=== PATIENT | female | born 1995 | race Hispanic/Latino ===

== ENCOUNTER 2021-02-27 22:14 | Emergency (ER) | payer SELFPAY ==
--- NOTE | ~2021-02-27 | CT_ITS ---
EXAMINATION: CT abdomen pelvis w con DATE: 02/28/2021 02:22 INDICATION: Abdominal pain, nausea, vomiting and fever TECHNIQUE: Computed tomography (CT) of the abdomen and pelvis was performed with 100 mL Omnipaque-350 intravenous contrast. Automated exposure control and iterative reconstruction technique were employe d. The dose-length product was 383.12 mGy-cm. COMPARISON: None FINDINGS: Lung bases are clear. Heart size is normal. No pericardial or pleural effusion. Cholecystectomy clips the gallbladder fossa. Liver, spleen, pancreas, bilateral adrenal glands are normal. The right kidne y is swollen with geographic regions of decreased parenchymal enhancement and with thickened enhancin g urothelium at the renal pelvis consistent with pyelonephritis. Small region of cortical scarring wi th mild surrounding decreased parenchymal enhancement at the left kidney likely sequela of prior infe ction. Diffuse mild bladder wall thickening consistent with cystitis. Uterus and bilateral adnexa are unremarkable. Bowels including the appendix are normal. Small amount of likely reactive there is phy siologic free fluid in the pelvis. No pathologically enlarged abdominal or pelvic lymphadenopathy. Sm all fat-containing umbilical hernia. Bones are unremarkable. IMPRESSION: 1. Cystitis and right pyelonephritis. Reviewed, dictated and finalized at location A.
[2021-02-27 22:17] VITALS: BP 106/64; PULSE 104; RESP 20; TEMP 36.6; O2SAT 100
[2021-02-28 00:41] VITALS: BP 99/62; PULSE 80; RESP 16; O2SAT 99
[2021-02-28 01:23] LABS: Hematocrit 34.1 % (37.0-47.0); Hemoglobin 11.5 g/dL (12.0-15.0); Mean Corpuscular HGB Conc 33.7 g/dl (32-36); Mean Corpuscular Volume 86.1 fl (80-100); Mean Platelet Volume 11.1 fl (7.4-10.4); Platelet Count Result 155 k/mm3 (150-375); Red Blood Count 3.96 M/mm3 (4.2-5.4); White Blood Count 16.3 K/mm3 (4.5-10.0)
[2021-02-28 01:25] LABS: Alanine Aminotransferase 101 U/L (4-35); Albumin Level 3.9 g/dL (3.5-5.1); Alkaline Phosphatase 159 U/L (38-126); Anion Gap 8 mmol/L (8-16); Aspartate Amino Transferase 77 U/L (14-36); Bilirubin,Total 1.2 mg/dL (0.2-1.3); Blood Urea Nitrogen 11 mg/dL (7-17); Calcium 8.8 mg/dL (8.4-10.2); Carbon Dioxide 23 mmol/L (22-30); Chloride 104 mmol/L (98-107); Estimated CRCL calculation 82 ml/min; Estimated Glomerular Filt Rate > 60; Glucose 109 mg/dL (65-110); Sodium 135 mmol/L (137-145)
[2021-02-28 01:37] LABS: Band Neutrophils Percent 23 % (0-6); Lymphocytes Absolute Manual 1.46 K/mm3 (1.1-4.5); Monocytes Absolute Manual 0.65 K/mm3 (0.1-0.90); Monocytes Percent Manual 4 % (3-9); Neutrophils Absolute Manual 14.18 K/mm3 (1.7-7.2); Neutrophils Percent Manual 64 % (46-73); Platelet Estimate Adequate (Adequate); Total Cells Counted 100
[2021-02-28] MEDS: SODIUM CHLORIDE 0.9% IV 1,000 ML 999 ML IV CONT (01:38)
[2021-02-28] MEDS: MORPHINE SULFATE (*CRX) 4 MG/ML INJ IV PUSH (01:39)
[2021-02-28] MEDS: ONDANSETRON INJ 4 MG/2 ML VIAL IV PUSH (01:39)
[2021-02-28 01:54] LABS: Lipase < 10 U/L (23-300)
[2021-02-28 02:03] LABS: Add Urine Microscopic? YES; Appearance Urine Cloudy (Clear); Bacteria Urine Trace /hpf; Bilirubin Urine Negative (Negative); Blood Urine Negative (Negative); Color Urine Yellow (Yellow); Glucose Urine UA Negative (Negative); Ketones Urine 1+ mg/dL (Negative); Leukocyte Esterase Ur 3+ LEU/UL (Negative); Mucus Urine Rare /lpf; Nitrate Urine Positive (Negative); Protein Urine 1+ mg/dL (Negative); RBC Urine 0-2 /hpf (0-2); Specific Grav Ur 1.015 (1.001-1.035); Squamous Epithelial Cell Urine Rare /hpf (Few); WBC Urine 21-30 /hpf
[2021-02-28 03:36] VITALS: PULSE 70; RESP 16; O2SAT 100
--- NOTE | 2021-02-28 03:43 | ED.GENADULT ---
HPI - General Adult General Chief complaint: Unspecified Stated complaint: abdominal pain, fever, chills, body aches Time Seen by Provider: 02/28/21 00:52 History of Present Illness HPI narrative: Patient is a 25-year-old female presents the emergency department with chief complaint of fever body aches chills and right-sided abdominal pain. The patient reports this is been going on for several days reports that she has had no vomiting with this reports that the pain is worse with movement and improved with rest. Patient reports has had prior history of cholecystectomy. Patient reports no Covid exposure reports that her temperature was as high as 102 at home. Patient reports that is improved with Tylenol. Related Data Allergies Allergy/AdvReac Type Severity Reaction Status Date / Time No Known Allergies Allergy Verified 02/28/21 00:42 Review of Systems Review of Systems: A 10 system review of systems was completed on the patient and is negative except for what is stated in the HPI. Nursing and ancillary documentation was reviewed. Exam Narrative: GENERAL: Well-appearing, well-nourished, and in no acute distress. HEAD: Normocephalic, atraumatic. EYES: PERRLA and EOMI. ENT: Nares clear, no rhinorrhea or epistaxis. Mucous membranes moist. NECK: Supple. CHEST: Clear to auscultation. No respiratory distress. HEART: Regular rate and rhythm. No murmur heard. Normal peripheral pulses. ABDOMEN: Soft, nontender, nondistended, normal active bowel sounds. EXTREMITIES: Normal range of motion. No edema. SKIN: Warm, dry, no rash. NEURO: No focal deficits. Alert and oriented x3. PSYCH: Normal mood and affect. Course Course Emergency Course: CT scan of the abdomen pelvis shows heterogeneous enhancement of the right kidney with prominence of the right ureter with ureteral thickening and enhancement. There are some thickening of the urinary bladder concerning for inflammatory infectious pyelonephritis Urinalysis consistent with a pyelonephritis. Vital Signs Vital signs: Vital Signs Temperature 36.6 C 02/27/21 22:17 Pulse Rate 104 H 02/27/21 22:17 Respiratory Rate 20 02/27/21 22:17 Blood Pressure 106/64 02/27/21 22:17 Pulse Oximetry 100 02/27/21 22:17 Temperature 36.6 C 02/27/21 22:17 Pulse Rate 70 02/28/21 03:36 Respiratory Rate 16 08/15/21 03:36 Blood Pressure 99/62 L 02/28/21 00:41 Pulse Oximetry 100 02/28/21 03:36 Medical Decision Making Vital Signs Vital Signs: Vital Signs Temperature 36.6 C 02/27/21 22:17 Pulse Rate 104 H 02/27/21 22:17 Respiratory Rate 20 02/27/21 22:17 Blood Pressure 106/64 02/27/21 22:17 Pulse Oximetry 100 02/27/21 22:17 Temperature 36.6 C 02/27/21 22:17 Pulse Rate 70 02/28/21 03:36 Respiratory Rate 16 02/28/21 03:36 Blood Pressure 99/62 L 02/28/21 00:41 Pulse Oximetry 100 02/28/21 03:36 Lab Data Result diagrams: 02/28/21 01:08 02/28/21 01:07 Labs: Lab Results 02/28/21 02/28/21 02/28/21 Range/Units 01:07 01:08 01:38 WBC 16.3 H (4.5-10.0) K/mm3 RBC 3.96 L (4.2-5.4) M/mm3 Hgb 11.5 L (12.0-15.0) g/dL Hct 34.1 L (37.0-47.0) % MCV 86.1 (80-100) fl MCH 29.0 (26-34) pg MCHC 33.7 (32-36) g/dl RDW 13.0 (11.5-14.5) % Plt Count 155 (150-375) k/mm3 MPV 11.1 H (7.4-10.4) fl Immature Gran % (Auto) Not Reportable Neut % (Auto) Not Reportable Lymph % (Auto) Not Reportable Kane % (Auto) Not Reportable Eos % (Auto) Not Reportable Baso % (Auto) Not Reportable Lymph # (Auto) Not Reportable Kane # (Auto) Not Reportable Eos # (Auto) Not Reportable Baso # (Auto) Not Reportable Abs Immat Gran (auto) Not Reportable Absolute Neuts (auto) Not Reportable Absolute Nucleated RBC Not Reportable Total Counted 100 Neutrophils % (Manual) 64 (46-73) % Band Neutrophils % 23 H (0-6) %
[2021-02-28 04:45] VITALS: BP 98/62; PULSE 85; RESP 16; O2SAT 100
== END 2021-02-28 04:52 | disposition home or self-care (01) ==
PROVIDERS: Emergency Provider Emergency Medicine
DX: N12 Tubulo-interstitial nephritis, not specified as acute or chronic (principal)
CPT/HCPCS: 36415; 74177; 80053; 81001; 81025; 83690; 85025; 87077; 87086; 87088; 87186; 96361; 96365; 96375; 99284; J0696; J2270; J2405; J7030; Q9967